=== PATIENT | male | born 1935 | race Hispanic/Latino ===

== ENCOUNTER 2019-06-14 12:58 | Emergency (ER) | payer MEDICARE | END 2019-06-14 13:57 | disposition home or self-care (01) | LOC: EDH 12:58 | DX: K59.00 Constipation, unspecified (principal); E78.00 Pure hypercholesterolemia, unspecified; I10 Essential (primary) hypertension; Z79.899 Other long term (current) drug therapy; Z90.49 Acquired absence of other specified parts of digestive tract | CPT/HCPCS: 99281 ==